=== PATIENT | female | born 1985 | race African-American/Black ===

== ENCOUNTER 2020-05-14 16:37 | Emergency (ER) | payer OTHER, SELFPAY ==
[2020-05-14 17:41] VITALS: BP 114/66; PULSE 60; RESP 18; TEMP 36.7; O2SAT 100; BMI 37.0
[2020-05-14 19:26] LABS: Influenza A PCR NEGATIVE (Negative); Influenza B PCR NEGATIVE (Negative); Resp Syncy Virus RNA Qual PCR NEGATIVE (Negative); SARS COV2 PCR INHOUSE POSITIVE (Negative)
--- NOTE | 2020-05-14 20:06 | ED.URI ---
HPI - URI/Sore Throat General Chief Complaint: Upper Respiratory Symptoms Stated Complaint: Covid Symptoms Time Seen by Provider: 05/14/20 18:18 Related Data Allergies Allergy/AdvReac Type Severity Reaction Status Date / Time penicillin V Allergy Unknown swelling Verified 05/14/20 17:41 No Known Allergies Allergy Verified 05/14/20 17:41 [facility] Past Medical History Medical History (Updated 05/14/20 @ 20:07 by Preston Britt NP) Patient denies medical problems Social History Social History Advance Directives: No Advance Directives Information Provided: No Physical Exam Vital Signs: Vital Signs: Last Vital Signs Temp 98.1 F 05/14/20 17:41 Pulse 60 05/14/20 17:41 Resp 18 05/14/20 17:41 BP 114/66 05/14/20 17:41 Pulse Ox 100 05/14/20 17:41 Body Mass Index 37.0 MDM - URI/Sore Throat Lab Data Labs: Lab Results 05/14/20 Range/Units 18:28 Coronavirus (PCR) POSITIVE A (Negative) Influenza Type A (PCR) NEGATIVE (Negative) Influenza Type B (PCR) NEGATIVE (Negative) RSV RNA Qual (PCR) NEGATIVE (Negative) Discharge Plan Discharge Clinical Impression: COVID-19 Patient Disposition: Home, Self-Care Instructions: COVID-19 (Coronavirus Disease 2019) (ED) Additional Instructions: Self-isolation/social distancing and quarantine for 14 days Supportive care discussed Return if any concerns or worsening symptoms Follow-up as discussed Thank you Referrals: Physician,None [Primary Care Provider] - 1 week Stand Alone Forms: Work/School Release
== END 2020-05-14 20:19 | disposition home or self-care (01) ==
PROVIDERS: Nurse Practitioner Primary Care; Emergency Provider Emergency Medicine
DX: U07.1 COVID-19 (principal)
CPT/HCPCS: 0241U; 36415; 99283